=== PATIENT | male | born 1990 | race Caucasian/White ===

== ENCOUNTER → 2018-08-12 | Outpatient (CLI) | payer BC ==
[~2018-08-12] MED LIST: ADDERALL XR30 MG PO; ADVIL 200MG TA200 MG PO; IMITREX50 MG PO; LORTAB ELIX0.5 MG/ML PO; PHENERGAN 25 TA25 MG PO; PRILOSEC 20MG20 MG PO
[2018-08-12 18:34] LABS: BASO # 0.1 (0.0-0.2); BASO % 1.3 % (0.0-2.0); EOS # 0.2 (0.0-0.7); EOS % 2.1 % (0-4.0); GRAN # 4.2 (1.4-6.5); GRAN % 54.7 % (42.2-75.2); HEMATOCRIT 42.2 % (42.0-52.0); HEMOGLOBIN 14.4 g/dl (13.5-18.0); LYMPH # 2.4 (1.2-3.4); LYMPH % 31.6 % (20.0-51.0); MEAN CELL VOLUME 84 fl (80.0-100.0); MEAN CORPUSCULAR HEMOGLOBIN 29 pg (27.0-31.0); MEAN CORPUSCULAR HGB CONC 34 g/dl (33.0-37.0); MEAN PLATELET VOLUME 10.9 fl (7.4-10.4); MONO # 0.8 (0.1-0.6); PLATELET COUNT 282 K/mm3 (130-400); RED BLOOD COUNT 5.02 M/mm3 (4.20-5.60); REDCELL DISTRIBUTION WIDTH-CV 12.9 % (11.5-14.5)
== END ==
LOC: COL.LAB 16:02
PROVIDERS: Family Medicine
DX: R53.83 Other fatigue (principal)

== ENCOUNTER → 2018-12-10 | Outpatient (CLI) | payer BC | LOC: ZCOL.LAB 16:08 | DX: J02.9 Acute pharyngitis, unspecified (principal) ==

== ENCOUNTER → 2019-03-23 | Outpatient (CLI) | payer BC | LOC: COL.LAB 16:25 | DX: J02.9 Acute pharyngitis, unspecified (principal) ==